=== PATIENT | female | born 1955 | race Caucasian/White ===

== ENCOUNTER 2022-02-24 07:22 | Emergency (ER) | payer MEDICARE, BC, SELFPAY ==
[2022-02-24 07:25] VITALS: BP 147/82; PULSE 89; RESP 16; TEMP 36.5; O2SAT 99; BMI 25.4
--- NOTE | 2022-02-24 07:59 | ED.GENADULT ---
HPI - General Adult General Date Seen: 02/24/22 Chief complaint: Eye Problems Stated complaint: eye inflammation Time Seen by Provider: 02/24/22 07:59 Related Data Previous Rx's Medication Instructions Recorded cephalexin 500 mg capsule 500 mg PO TID #21 caps 02/24/22 Allergies Allergy/AdvReac Type Severity Reaction Status Date / Time codeine Allergy Mild vomits Verified 02/24/22 07:33 PFSH PFSH Social History Smoking Status: Never smoker Do you use any of these nicotine containing products: None Second hand tobacco smoke exposure: No How often do you have a drink containing alcohol: 2-4 times a month AUDIT-C Alcohol total score: 2 Non-prescribed substance use: denies use service: No Exam Const: Vital Signs, click to edit/add: Vital Signs - 24 hr 02/24/22 07:25 Temperature 97.7 F Pulse Rate [Right Pulse Oximeter] 89 Respiratory Rate 16 Blood Pressure [Ri ght Upper Arm] 147/82 H Pulse Oximetry 99 Oxygen Delivery Me thod Room Air Course Vital Signs Vital signs: Initial Vital Signs Temperature 97.7 F 02/24/22 07:25 Temperature Source Temporal Artery Scan 02/24/22 07:25 Pulse Rate 89 02/24/22 07:25 Respiratory Rate 16 02/24/22 07:25 Blood Pressure 147/82 H 02/24/22 07:25 Blood Pressure Mean 103 02/24/22 07:25 Blood Pressure Position Sitting 02/24/22 07:25 Pulse Oximetry 99 02/24/22 07:25 Oxygen Delivery Method 02/24/22 07:25 Vital Signs Temperature 97.7 F 02/24/22 07:25 Pulse Rate 89 02/24/22 07:25 Respiratory Rate 16 02/24/22 07:25 Blood Pressure 147/82 H 02/24/22 07:25 Pulse Oximetry 99 02/24/22 07:25 Oxygen Delivery Method 02/24/22 07:25 Temperature 97.7 F 02/24/22 07:25 Pulse Rate 89 02/24/22 07:25 Respiratory Rate 16 02/24/22 07:25 Blood Pressure 147/82 H 02/24/22 07:25 Pulse Oximetry 99 02/24/22 07:25 Oxygen Delivery Method 02/24/22 07:25 Discharge Plan Discharge Clinical Impression: Chalazion left upper eyelid Patient Disposition: Home, Self-Care Condition: Stable Additional Instructions: Hot packs, Keflex x 7 days, Ibuprofen. OK to continue eye drops. Follow up if no better over the next 3-5 days. Prescriptions: New cephalexin 500 mg capsule 500 mg PO TID Qty: 21 0RF Stand Alone Forms: [employer] Info Instructions
--- NOTE | 2022-02-24 19:17 | ED.GENADULT ---
HPI - General Adult General Chief complaint: Eye Problems Stated complaint: eye inflammation Time Seen by Provider: 02/24/22 07:59 Source: patient Mode of arrival: ambulatory Limitations: no limitations History of Present Illness HPI narrative: 67-year-old female who comes in with two days of redness swelling of her left eye. She was seen in urgent care and given ofloxacin drops but they have not helped. This morning her eye was stuck shut with some thick clear material. She has not had any purulent drainage. There is no itching. Her entire upper lid is swollen and tender. Related Data Previous Rx's Medication Instructions Recorded cephalexin 500 mg capsule 500 mg PO TID #21 caps 02/24/22 Allergies Allergy/AdvReac Type Severity Reaction Status Date / Time codeine Allergy Mild vomits Verified 02/24/22 07:33 Review of Systems Status of ROS: Reports: 10 or more systems reviewed and unremarkable except as noted in History and below Narrative: Review of systems is outlined above otherwise noted to be negative. PFSH PFSH Social History Smoking Status: Never smoker Do you use any of these nicotine containing products: None Second hand tobacco smoke exposure: No How often do you have a drink containing alcohol: 2-4 times a month AUDIT-C Alcohol total score: 2 Non-prescribed substance use: denies use service: No Exam Narrative: Exam Narrative: Vitals noted. HEENT: Conjunctiva are mildly injected. No purulent drainage. She has diffuse no swelling of the left upper lid with a lump in the center portion. No chemosis or foreign body. Extraocular movements are full. Funduscopic exam is normal. Tympanic membranes are pearly white bilaterally. Posterior pharynx is clear without erythema or exudate. Neck is supple without adenopathy. Lungs: Clear to auscultation in all caro. No wheezes, rales, rhonchi. Heart: Regular rate and rhythm without murmur. Skin: No abnormalities noted of the exposed skin. Neurologic: Awake, alert, fully oriented. Neurologic exam is nonfocal. Const: Vital Signs, click to edit/add: Vital Signs - 24 hr 02/24/22 07:25 Temperature 97.7 F Pulse Rate [Right Pulse Oximeter] 89 Respiratory Rate 16 Blood Pressure [Ri ght Upper Arm] 147/82 H Pulse Oximetry 99 Oxygen Delivery Me thod Room Air Course Course Hospital Course: Patient was seen and examined. We discussed the difference between a stye, chalazion, conjunctivitis. Vital Signs Vital signs: Initial Vital Signs Temperature 97.7 F 02/24/22 07:25 Temperature Source Temporal Artery Scan 02/24/22 07:25 Pulse Rate 89 02/24/22 07:25 Respiratory Rate 16 02/24/22 07:25 Blood Pressure 147/82 H 02/24/22 07:25 Blood Pressure Mean 103 02/24/22 07:25 Blood Pressure Position Sitting 02/24/22 07:25 Pulse Oximetry 99 02/24/22 07:25 Oxygen Delivery Method 02/24/22 07:25 Vital Signs Temperature 97.7 F 02/24/22 07:25 Pulse Rate 89 02/24/22 07:25 Respiratory Rate 16 02/24/22 07:25 Blood Pressure 147/82 H 02/24/22 07:25 Pulse Oximetry 99 02/24/22 07:25 Oxygen Delivery Method 02/24/22 07:25 Temperature 97.7 F 02/24/22 07:25 Pulse Rate 89 02/24/22 07:25 Respiratory Rate 16 02/24/22 07:25 Blood Pressure 147/82 H 02/24/22 07:25 Pulse Oximetry 99 02/24/22 07:25 Oxygen Delivery Method 02/24/22 07:25 Discharge Plan Discharge Clinical Impression: Chalazion left upper eyelid Patient Disposition: Home, Self-Care Condition: Stable Additional Instructions: Hot packs, Keflex x 7 days, Ibuprofen. OK to continue eye drops. Follow up if no better over the next 3-5 days. Prescriptions: New cephalexin 500 mg capsule 500 mg PO TID Qty: 21 0RF Stand Alone Forms: [employer] Info Instructions
== END 2022-02-24 08:44 | disposition home or self-care (01) ==
LOC: ED 08:14
PROVIDERS: Emergency Provider Family Medicine
DX: H00.14 Chalazion left upper eyelid (principal)
CPT/HCPCS: 99281; 99282; 99283